=== PATIENT | male | born 1980 | race African-American/Black ===

== ENCOUNTER 2020-08-21 18:26 | Emergency (ER) | payer BC ==
[2020-08-21] MEDS ORDERED: METOPROLOL TARTRATE 25 MG TABLET PO ONE (19:32)
--- NOTE | 2020-08-21 19:33 | ER Document Report ---
ED Medical Screen (RME) - General Chief Complaint: High Blood Pressure Stated Complaint: BLURRED VISION Time Seen by Provider: 08/21/20 19:26 Notes: Patient presents complaining of elevated the patient has been informed that they may have pre-hypertension or hypertension based on a blood pressure reading in the emergency department. I recommend that patient call the primary care provider listed on their discharge instructions or a physician of their choice by this week to arrange follow-up for further evaluation of possible pre- hypertension or hypertension. With mild headache and blurred vision. Patient denies any chest pain, nausea or vomiting. Patient does report some urinary frequency and increased thirst. Patient reports mild cough. Patient reports a history of hypertension and states he used to be on metoprolol for this but has not been on the medication for the past year. I have greeted and performed a rapid initial assessment of this patient. A comprehensive ED assessment and evaluation of the patient, analysis of test results and completion of the medical decision making process will be conducted by additional ED providers. - Related Data Allergies/Adverse Reactions: No Known Allergies Allergy (Unverified 08/21/20 19:28) Home Medications: had been on metoprolol 50 mg as needed. But not taken in over 1 year. Past Medical History - Social History Frequency of alcohol use: Occasional Drug Abuse: None Physical Exam - Vital signs Vitals: Temp Pulse Resp BP Pulse Ox 98.3 F 100 20 184/119 H 95 08/21/20 18:50 08/21/20 18:50 08/21/20 18:50 08/21/20 18:50 08/21/20 18:50 - General General appearance: Appears well, Alert - Respiratory Respiratory status: No respiratory distress Breath sounds: Normal Course - Vital Signs Vital signs: Temp Pulse Resp BP Pulse Ox 98.3 F 100 20 191/136 H 95 08/21/20 18:50 08/21/20 18:50 08/21/20 18:50 08/21/20 19:27 08/21/20 18:50
[2020-08-21] MEDS ORDERED: NORMAL SALINE 1000 ML 1,000 ML IV ONE (20:16)
[2020-08-21 20:25] LABS: ABSOLUTE EOSINOPHILS # (AUTO) 0.1 10^3/uL (0.0-0.6); ABSOLUTE LYMPHOCYTES (AUTO) 1.5 10^3/uL (0.5-4.7); ABSOLUTE MONOCYTES (AUTO) 0.6 10^3/uL (0.1-1.4); ABSOLUTE NEUT (AUTO) 8.2 10^3/uL (1.7-8.2); BASOPHILS % (AUTO) 0.5 % (0-2); EOSINOPHILS % (AUTO) 0.9 % (0-6); HEMATOCRIT 42.8 % (37.9-51.0); HEMOGLOBIN 14.9 g/dL (13.5-17.0); LYMPHOCYTES % (AUTO) 14.1 % (13-45); MEAN CORPUSCULAR HEMOGLOBIN 29.9 pg (27.0-33.4); MEAN CORPUSCULAR HGB CONC 34.8 g/dL (32.0-36.0); MEAN CORPUSCULAR VOLUME 86 fl (80-97); MONOCYTES % (AUTO) 6.2 % (3-13); PLATELET COUNT 223 10^3/uL (150-450); RED BLOOD COUNT 4.96 10^6/uL (4.35-5.55); RED CELL DISTRIBUTION WIDTH 13.2 % (11.5-14.0); SEGMENTED NEUTROPHILS % (AUTO) 78.3 % (42-78); TOTAL CELLS COUNTED % (AUTO) 100 %; WHITE BLOOD COUNT 10.5 10^3/uL (4.0-10.5)
[2020-08-21 20:28] LABS: APPEARANCE,URINE CLEAR; BILIRUBIN,URINE NEGATIVE (NEGATIVE); COLOR,URINE STRAW; GLUCOSE, URINE >=500 mg/dL (NEGATIVE); KETONES,URINE 20 mg/dL (NEGATIVE); LEUKOCYTE ESTERASE,URINE NEGATIVE (NEGATIVE); NITRITE,URINE NEGATIVE (NEGATIVE); PROTEIN,URINE NEGATIVE (NEGATIVE); URINE SPECIFIC GRAVITY 1.037; UROBILINOGEN,URINE NEGATIVE mg/dL (<2.0)
[2020-08-21 20:40] LABS: ALBUMIN 4.5 g/dL (3.5-5.0); ALKALINE PHOSPHATASE 86 U/L (38-126); ANION GAP 12 (5-19); ASPARTATE AMINO TRANSFERASE 23 U/L (17-59); BILIRUBIN,DIRECT 0.2 mg/dL (0.0-0.4); BILIRUBIN,TOTAL 0.8 mg/dL (0.2-1.3); BLOOD UREA NITROGEN 14 mg/dL (7-20); CALCIUM 10.4 mg/dL (8.4-10.2); CARBON DIOXIDE 28 mmol/L (22-30); CHLORIDE 96 mmol/L (98-107); POTASSIUM 4.4 mmol/L (3.6-5.0); TOTAL PROTEIN 7.3 g/dL (6.3-8.2)
--- NOTE | 2020-08-21 20:44 | RADIOLOGY REPORT (SQ) ---
EXAM DESCRIPTION: CT HEAD WITHOUT CLINICAL HISTORY: 40 years Male, DONOVAN, HTN, blurred vision COMPARISON: None. TECHNIQUE: Axial images of the head were performed without the use of intravenous contrast, with sagittal and coronal reformatted images. This exam was performed according to our departmental dose-optimization program which includes use of Automated Exposure Control, adjustment of the mA and/or kV according to patient size and/or use of iterative reconstruction technique. FINDINGS: No evidence of acute hemorrhage or infarct. No evidence of mass or hydrocephalus. Black/white matter differentiation is preserved. The paranasal sinuses are clear. IMPRESSION: Normal head CT.
[2020-08-21 20:50] LABS: GLUCOSE 443 mg/dL (75-110)
--- NOTE | 2020-08-21 20:50 | RADIOLOGY REPORT (SQ) ---
EXAM DESCRIPTION: CHEST SINGLE VIEW 08/21/2020 7:30 PM [employer] CLINICAL HISTORY: 40 years Male, cough, HTN; ; COMPARISON: None. FINDINGS: Single view is obtained. Cardiac and mediastinal contours are normal. Lungs are clear. No pleural effusion or pneumothorax. IMPRESSION: No acute disease.
[2020-08-22] MEDS ORDERED: NORMAL SALINE 1000 ML 1,000 ML IV ONE ×2 (01:45→02:00)
[2020-08-22 01:53] LABS: VENOUS BLOOD BASE EXCESS 0.7 mmol/L; VENOUS BLOOD HCO3 27.8 mmol/L (20-32); VENOUS BLOOD PCO2 54.1 mmHg (35-63); VENOUS BLOOD PH 7.33 (7.30-7.42)
[2020-08-22] MEDS ORDERED: METOPROLOL TARTRATE 25 MG TABLET PO ONE ×2 (02:00→02:45)
--- NOTE | 2020-08-22 03:53 | ER Document Report ---
ED Blood Pressure Problem - General Chief Complaint: High Blood Pressure Stated Complaint: BLURRED VISION Time Seen by Provider: 08/21/20 19:26 Primary Care Provider: SHADI VÁSQUEZ MD [ACTIVE STAFF] - Follow up in 3-5 days - [facility] Notes: Patient is a 40-year-old male with a past medical history of high blood pressure who presents with blurry vision and high blood pressure. Patient states that 1 year ago, he ran out of his metoprolol. He used to take 50 mg daily. Patient states that he tried to get this refilled but had to have a checkup first and has been unable to find time to do this. He states that for the past 2 weeks he has had some blurry vision. He also states that his blood pressure has been high. Patient admits to frequent urination. He denies any chest pain or shortness of breath. No headaches. Patient states he has an appointment coming up with a PCP. - Related Data Allergies/Adverse Reactions: No Known Allergies Allergy (Unverified 08/21/20 19:28) Home Medications: had been on metoprolol 50 mg as needed. But not taken in over 1 year. Past Medical History - General Information source: Patient - Social History Smoking Status: Never Smoker Frequency of alcohol use: Occasional Drug Abuse: None Family History: Reviewed & Not Pertinent Patient has homicidal ideation: No - Past Medical History Cardiac Medical History: Reports: Hx Hypertension Review of Systems - Review of Systems Notes: CONSTITUTIONAL: No fever, fatigue or weight loss. SKIN: No rash. HENT: No congestion, ear pain, or sore throat. EYES: Positive for blurry vision. CARDIOVASCULAR: No chest pain or edema. RESPIRATORY: No cough, shortness of breath, congestion, or wheezing. GASTROINTESTINAL: No abdominal pain, nausea, vomiting GENITOURINARY: No dysuria. Positive for increased urination. MUSCULOSKELETAL: No joint pain or swelling. NEUROLOGIC: No seizures. No headache, focal weakness or sensory changes. HEMATOLOGIC: No unusual bruising or bleeding. PSYCHIATRIC: No depression or anxiety. Physical Exam - Vital signs Vitals: Temp Pulse Resp BP Pulse Ox 98.3 F 100 20 184/119 H 95 08/21/20 18:50 08/21/20 18:50 08/21/20 18:50 08/21/20 18:50 08/21/20 18:50 - General General appearance: Appears well In distress: None Notes: VITAL SIGNS: Hypertensive. GENERAL: No acute distress, non-toxic appearance. HEAD: Normal with no signs of head trauma. EYES: EOMI, conjunctiva normal, no discharge. EARS: Hearing grossly intact. NOSE: Normal. NECK: Normal range of motion, no tenderness, supple, no lymphadenopathy, No adenopathy, no JVD. CHEST: Clear breath sounds bilaterally. No wheezes, rales, or rhonchi. CARDIAC: Regular rate and rhythm. S1 and S2, without murmurs, gallops, or rubs. VASCULAR: No Edema. ABDOMEN: Normal and soft with no tenderness MUSCULOSKELETAL: Good range of motion of all major joints. Extremities without clubbing, cyanosis or edema. NEUROLOGICAL: Alert and oriented x 3. No focal sensory or strength deficits. Speech normal. Follows commands appropriately. PSYCHIATRIC: Normal Affect, judgement and mood. SKIN: Normal appearance with no rashes or lesions. Course - Re-evaluation Re-evalutation: 08/22/20 03:51 Patient appears well on exam. He is in no acute distress. He does have hypert ension. Patient had a negative CT and x-ray. He was hyperglycemic initially. This has been improved with fluids. He also has an elevated A1c. I discussed all this with the patient. I educated him that he really needs to follow-up with the PCP and he states he already has an appointment upcoming. Patient was given metoprolol here. We will observe his blood pressure. Likely, he will be discharged with a course of his metoprolol as he has run out. I also discussed his glucose with him, I do suspect he has diabetes due to the A1c. He does not seem to have any contraindications to Metformin. I will start him on a short course of Metformin until he can follow-up with his PCP and have this rechecked. Patient was given strict return precautions. I have also educated him on diabetic diet. Patient is very agreeable to the plan for follow-up. 08/22/20 07:00 - Vital Signs Vital signs: Temp Pulse Resp BP Pulse Ox 98.7 F 71 19 173/96 H 98 08/22/20 06:24 08/21/20 23:37 08/22/20 06:24 08/22/20 06:21 08/22/20 06:24 - Laboratory Results Result Diagrams: 08/21/20 19:50 08/21/20 19:50 Laboratory Results Interpreted: 08/21/20 08/21/20 08/21/20 19:50 19:50 19:50 Seg Neutrophils % 78.3 H Sodium 136.0 L Chloride 96 L Glucose 443 H* POC Glucose Hemoglobin A1c % Calcium 10.4 H Urine Glucose (UA) >=500 H Urine Ketones 20 H 08/21/20 08/21/20 08/22/20 19:50 19:59 01:41 Seg Neutrophils % Sodium Chloride Glucose POC Glucose 395 H 323 H Hemoglobin A1c % 13.9 H Calcium Urine Glucose (UA) Urine Ketones Critical Laboratory Results Reviewed: No Critical Results - Radiology Results Critical Radiology Results Reviewed: No Critical Results - EKG Interpretation by Me EKG shows normal: Sinus rhythm Rate: Normal Rhythm: NSR When compared to previous EKG there are: Previous EKG unavailable Additional EKG results interpreted by me: 08/22/20 04:16 Sinus rhythm at a rate of 87. QTc 424. No acute ST changes. No previous EKG available for comparison. Discharge - Discharge Clinical Impression: Hyperglycemia Hypertension Qualifiers: Hypertension type: unspecified Qualified Code(s): I10 - Essential (primary) hypertension Condition: Stable Disposition: HOME, SELF-CARE Instructions: High Blood Pressure ([facility]), Hyperglycemia ([facility]) Additional Instructions: You will be started back on your metoprolol. I will also write you a prescription for Metformin as I believe you have the start of diabetes. Please make sure you are eating a healthy diet and avoiding sugary foods and carbs. Please follow-up with your family doctor. Please return to the ER immediately for any worsening or change of symptoms. Prescriptions: Metoprolol Tartrate [Lopressor 50 mg Tablet] 50 mg PO DAILY #14 tablet Metformin HCl 850 mg PO DAILY #14 tablet Referrals: SHADI VÁSQUEZ MD [ACTIVE STAFF] - Follow up in 3-5 days
[2020-08-22 06:36] VITALS: BP 173/96
--- NOTE | 2020-08-22 11:50 | EKG REPORT ---
SEVERITY:- OTHERWISE NORMAL ECG - SINUS RHYTHM LEFT AXIS DEVIATION BORDERLINE LVH : Confirmed by: Arnoldo Petersen MD 22-Aug-2020 11:50:08
== END 2020-08-22 06:27 | disposition home or self-care (01) ==
LOC: ER 18:26
DX: I10 Essential (primary) hypertension (principal); H53.8 Other visual disturbances; R73.9 Hyperglycemia, unspecified
CPT/HCPCS: 93005; 99285; 96360; 36415; 82962; 85025; 80053; 81001; 84484; 83036; 82803; 71045; 70450; 93010; J7030